=== PATIENT | male | born 1955 | race Caucasian/White ===

== ENCOUNTER 2016-09-11 09:03 | Emergency (ER) | payer OTHER ==
[~2016-09-11] VITALS: Ht 190.5 cm; Wt 120.0 kg
[2016-09-11 09:14] VITALS: BP 162/90; PULSE 82; RESP 26; O2SAT 99
--- NOTE | 2016-09-11 09:20 | ED.REPORT ---
HPI-Abd Pain M 40 and Over Date of Service Sep 11, 2016 ED Provider: Quan Rubio DO The patient is a 61 year old male with history diabetes mellitus type II who presents to ED with severe lower left abdominal pain which began suddenly on his way to work this morning. He experienced lower abdominal cramping and had a bowel movement with no improvement of his left-sided pain. His pain has become progressively worse. He has also experienced nausea. The patient cannot find a comfortable resting position. Patient denies fever, chills, dysuria, vomiting, or chest pain. He has not had similar symptoms in the past. Nursing Notes Stated Complaint: SEVERE ABD/SIDE PAIN Chief Complaint: Male Abdominal Pain Nursing Notes Reviewed: Yes Allergies: Coded Allergies: No Known Allergies (Unverified , 09/11/16) Scheduled PRN Naproxen (Naproxen) 500 Mg Tab 500 MG PO BID PRN PRN For Pain Oxycodone (Roxicodone) 5 Mg Tablet 2.5-5 MG PO Q4H PRN PRN For Pain General Time Seen by MD: 09:19 Chief Complaint Abdominal pain Hx Obtained From: Patient Arrived By: Walk-in Sudden in Onset?: Yes Onset Occurred: 1 - 4 hours ago Symptom Duration: Since onset Progression since Onset: Gradually worsening Location: : Abdomen lower: Flank left: LLQ Quality: Painful Severity: Current: Severe Severity: Maximum: Severe Associated with: Reports: Back pain, Nausea, Denies: Chest pain, Diarrhea, Fever, Vomiting Pertinent Negative: Pt denies other symptoms Recent Healthcare: No recent doctor visit, No recent hospitalization Similar Sx Previous: No Past Medical History Past Medical History Diabetes mellitus Denies: Hypertension Family History Noncontributory Smoking History Unknown if Ever Smoker Social History Other Social History: Good social support Ambulatory Status Independent Review of Systems Review of Systems Note: Patient is type II diabetic and has hypertension. Basic Review of Systems ENT: No pharyngeal pain Constitutional: Denies: Chills, Fever Cardiovascular: Denies: Chest pain GI: Reports: Abdominal pain, Nausea, Denies: Diarrhea, Vomiting Male: Reports Flank pain, Denies Dysuria Musculoskeletal: Reports: Back pain Complete sys rev & neg: except as marked. Physical Exam Initial Vital Signs Vital Signs (First) Date Time Temp Pulse Resp B/P Pulse Ox O2 Delivery O2 Flow Rate FiO2 09/11/16 09:14 35.8 82 26 162/90 99 09/11/16 12:46 Room Air Initial VS: Vital signs abnormal (hypertensive and tachypneic ) Head / Eyes: Atraumatic, Normocephalic, PERRL ENT: Mucous membranes moist, Conjunctiva normal, No scleral icterus Neck: Supple, Non-tender, Full range of motion Extremities: Vascular intact, Neuro intact, No swelling, No tenderness Neurologic: Alert, Oriented, Nonfocal Psychiatric: Mood/affect normal, Behavior normal, Normal thought content General/Constitutional: Awake, Alert Distress / Hydration: Positive: Distress moderate Behavior: Positive: Restless Appearance / Presentation: Positive: Uncomfortable Respiratory / Chest: Atraumatic, Breath sounds NL Cardiovascular: Heart rate NL, Regular rhythm, Heart sounds NL Periph CV / BP Differential: Positive: Peripheral pulses 2+ ( 2+ post tibial pulses) Abdomen: Soft, Non-tender, No guarding, No rebound, BS normoactive, No distention, No hernia, No palpable mass, No pulsatile mass Back: Non-tender, No midline vertebral tend, No CVA tenderness Skin: Atraumatic, No rash, Warm, Dry Interpretation & Diagnostics Lab Results Interpretation Result Diagram: 09/11/16 0945 09/11/16 1015 Test 09/11/16 09:45 09/11/16 10:15 09/11/16 13:00 White Blood Count 13.5th/mm3 (3.8-10.1) Red Blood Count 5.14mil/mm3 (4.40-5.80) Hemoglobin 16.0g/dL (13.8-17.2) Hematocrit 45.3% (41.0-50.0) Mean Corpuscular Volume 88.1fL (81-100) Mean Corpuscular Hemoglobin 31.1pg (27.0-35.0) Mean Corpuscular Hemoglobin Concent 35.3% (32.0-37.0) Red Cell Distribution Width 13.8% (12.3-15.4) Platelet Count 77bil/L (150-400) Neutrophils (%) (Auto) 87.6% (40-74) Lymphocytes (%) (Auto) 7.5% (14-46) Monocytes (%) (Auto) 3.6% (4-12) Eosinophils (%) (Auto) 1.0% (0-5) Basophils (%) (Auto) 0.1% (0-3) Prothrombin Time 10.6sec (8.1-12.5) Prothromb Time International Ratio 0.99ratio Sodium Level 139mEq/L (134-144) Potassium Level 4.5mEq/L (3.5-5.2) Chloride Level 103mEq/L (97-108) Carbon Dioxide Level 19mmol/L (18-29) Blood Urea Nitrogen 25mg/dL (8-27) Creatinine 1.06mg/dL (0.76-1.27) Estimat Glomerular Filtration Rate 76mL/min (>59) Glucose Level 222mg/dL (60-99) Lactic Acid Level 3.5mmol/L (0.4-2.0) Calcium Level 9.0mg/dL (8.5-10.1) Magnesium Level 1.2mg/dL (1.6-2.6) Total Bilirubin 0.7mg/dL (0.0-1.2) Aspartate Amino Transf (AST/SGOT) 42U/L (0-50) Alanine Aminotransferase (ALT/SGPT) 55U/L (0-44) Alkaline Phosphatase 57U/L (25-160) Total Protein 6.7g/dL (6.4-8.4) Albumin 4.4g/dL (3.4-5.0) Lipase 24U/L (13-60) Urine Color Dark yellow (YELLOW) Urine Appearance Slightly cloudy Urine pH 5.5 (5.0-8.0) Urine Specific [place] 1.025 (1.003-1.035) Urine Protein 30mg/dL (NEG,TRACE) Urine Glucose (UA) Negativemg/dL (NEGATIVE) Urine Ketones 15mg/dL (NEGATIVE) Urine Occult Blood Large (NEGATIVE) Urine Nitrite Negative (NEGATIVE) Urine Bilirubin Negative (NEGATIVE) Urine Urobilinogen Normalmg/dL (NORMAL) Urine Leukocyte Esterase Negative (NEGATIVE) Urine RBC Packed/hpf (0-2) Urine WBC 0-5/hpf (0-5) Urine Epithelial Cells Occasional/hpf (NONE-MOD) Urine Crystals Oxalic acid crystals (NONE Urine Bacteria Few/hpf (NONE-FEW) Urine Hyaline Casts None/lpf (NONE) Urine Granular Casts None seen (NONE SEEN) Urine Waxy Casts None seen (NONE SEEN) Urine Red Blood Cell Casts None seen (NONE SEEN) Urine White Blood Cell Casts None seen (NONE SEEN) Urine Mucus Present (None Seen) Urine Trichomonas None seen (NONE SEEN) Urine Yeast Few (NONE SEEN) Urinalysis Comment None Urine Culture Reflexed Not indicated ECG Interpretation ECG Interpretation: Sinus rhythm RBBB Time: 10:15 Interpreted by: ED physician CT Abd / Pelvis Interpretation IMPRESSION: 1. No aortic aneurysm or dissection. No significant atherosclerotic ossifications. 2. A 2 mm stone within the bladder lumen, compatible with a recently passed stone. There is mild left perinephric stranding and periureteral stranding. No hydronephrosis. 3. Mild sigmoid diverticulosis. No active diverticulitis. Dictated by: Darren Sanchez M.D. on 09/11/2016 at 12:23 Re-Eval/Medical Decision Med Decision/Clinical Course Patient presents in severe status with left-sided abdominal pain without focal reproducibility, initial differential diagnosis was broad but did include both kidney stone and aortic dissection given his advanced age, hypertension on arrival, and exam findings. Ultimately there is no dissection however he does have a small stone. Pain is completely resolved. No signs of infection. Patient will be discharged. Return and follow-up precautions given Source of Hx: Old records, Family Time of Eval: 12:51 Re-Evaluation/Progress Note: Rechecked the patient. Discussed CT results, diagnosis, and plan for discharge. All questions were addressed. Counseled Regarding: Diagnosis, Lab results, Need for follow-up, When/why to return to ED Discharge & Departure Primary Impression: Kidney stone Disposition: Home Vital Signs - All Vital Signs Date Time Temp Pulse Resp B/P Pulse Ox O2 Delivery O2 Flow Rate FiO2 09/11/16 12:46 79 16 120/69 97 Room Air 09/11/16 09:14 35.8 82 26 162/90 99 )( All Prior VS Reviewed: Yes Condition: Stable Patient Instructions: Renal Colic (ED) Additional Instructions: Thank you for entrusting us with your care today. I am glad you are feeling better. Your CT scan shows evidence of a recently passed kidney stone in your bladder. Your pain should improve from here! Strain your urine in order to catch any possible stone. Use Oxycodone and Naproxen for pain. Followup with your regular doctor next week for recheck. You may want to consider seeing a urologist. Make sure to drink plenty of fluids. Return to the emergency department for any new or concerning symptoms. Referrals: Bartolo Reina MD (Family) Scribe Attestation Portions of this note were transcribed by Maria Hernadez and Donald Woods. I, Dr. Martina De Guzman personally performed the history, physical exam and medical decision- making; I reviewed and confirmed the accuracy of the information in the transcribed note. Signed by: Maria Hernadez and Juan Person, 09/11/2016 and 1330. copies to: Bartolo Reina MD, Timothy S DO Sep 11, 2016 09:20 Donald Woods Sep 11, 2016 09:45 Maria Hernadez Sep 11, 2016 10:06
[2016-09-11] MEDS ORDERED: Ondansetron 2 mg/mL 2 mL Inj IVPUSH PRN (09:25)
[2016-09-11] MEDS ORDERED: 0.9% Sodium Chloride 1,000 ML IV ONE (09:25)
[2016-09-11] MEDS: HYDROmorphone 1 mg/mL Inj IVPUSH PRN ×2 (09:51→09:57)
[2016-09-11 09:54] LABS: BASOPHILS % (AUTO) 0.1 % (0-3); MONOCYTES % (AUTO) 3.6 % (4-12); Mean Corpuscular Hemoglobin 31.1 pg (27.0-35.0); Mean Corpuscular Volume 88.1 fL (81-100); NEUTROPHILS % (AUTO) 87.6 % (40-74); Platelet Count 77 bil/L (150-400)
[2016-09-11 10:37] LABS: INR 0.99 ratio
[2016-09-11 11:01] LABS: Magnesium 1.2 mg/dL (1.6-2.6)
[2016-09-11] MEDS ORDERED: Magnesium Sulf 4 Gm/100 mL H2O 4 GM in IV Premix 1 EACH IV ONE (11:05)
--- NOTE | 2016-09-11 12:35 | DRSVH ---
PROCEDURE: CT ANG CHEST/ABD/PEL W/WO CIBTRAST (PNL-7502) INDICATIONS: 61-year-old man with sudden onset left flank pain. The patient is hypertensive. TECHNIQUE: Precontrast 5 mm thick sections acquired from the lung apices to the iliac crests. After the adminis tration of intravenous contrast, 3 mm thick sections again acquired from the lung apices to the iliac crests. 3-dimensional maximum intensity projection (MIP) oblique sagittal and coronal reformats wer e then acquired, and/or 3-dimensional volume rendering reformats. For radiation dose reduction, the following was used: automated exposure control. COMPARISON: None. FINDINGS: Image quality: Excellent. AORTA: The aorta is normal in caliber and enhancement. No aortic dissection. No significant atheros clerotic calcification. CHEST: Lungs and pleura: No acute airspace opacities. No pleural effusions or pneumothorax. Central and p eripheral airways are patent and normal in caliber. Mediastinum: Heart size is normal. No pericardial effusion. No mediastinal or hilar adenopathy by size criteria. Central pulmonary arteries are normal in size. Esophagus is normal in caliber. No h iatal hernias. Bones and chest wall: No axillary adenopathy by size criteria. Thyroid gland is normal. No suspici ous bony lesions. No vertebral body compression fractures. ABDOMEN: Vasculature: Celiac trunk and mesenteric arteries are normal in caliber and patent. Renal arteries are normal in caliber and patent. Solid organs: Both kidneys are normal in size and enhancement, without hydronephrosis. There is mild left lupe-nephric and lupe-ureteral stranding. A 2 mm stone is noted in the dependent urinary bladde r room and at midline, consistent with recent passed stone. Liver and spleen are normal in size. Gallbladder is normal. Biliary system is non dilated. Pancrea s enhances normally. No adrenal nodules. Peritoneum and bowel: No free fluid or air. Normal appendix. Bowel loops are normal in caliber and wall thickness. Note is made of sigmoid diverticulosis. No active diverticulitis. Nodes and vessels: No retroperitoneal or mesenteric adenopathy by size criteria. Inferior vena cava is normal in morphology. Bones: No suspicious bony lesions. No vertebral body compression fractures. Miscellaneous: No ventral hernias. IMPRESSION: 1. No aortic aneurysm or dissection. No significant atherosclerotic ossifications. 2. A 2 mm stone within the bladder lumen, compatible with a recently passed stone. There is mild left perinephric stranding and periureteral stranding. No hydronephrosis. 3. Mild sigmoid diverticulosis. No active diverticulitis. Dictated by: Darren Sanchez M.D. on 09/11/2016 at 12:23 Approved by: Darren Sanchez M.D. on 09/11/2016 at 12:33
[2016-09-11 12:46] VITALS: BP 120/69; PULSE 79; RESP 16; O2SAT 97
[2016-09-11 13:11] LABS: APPEARANCE,URINE SLIGHTLY CLOUDY (CLEAR,HAZY); COLOR,URINE DARK YELLOW (YELLOW); OCCULT BLOOD,URINE LARGE (NEGATIVE); PH,URINE 5.5 (5.0-8.0)
[2016-09-11 13:13] LABS: UROBILINOGEN,URINE NORMAL (NORMAL)
[2016-09-11] MEDS ORDERED: OXYC-474 PO (13:15)
[2016-09-11] MEDS ORDERED: NPR500T PO (13:15)
[2016-09-11 13:22] LABS: YEAST,URINE FEW (NONE SEEN)
[2016-09-11 13:47] VITALS: BP 124/69; PULSE 76; RESP 16; O2SAT 98
== END 2016-09-11 13:48 | disposition home or self-care (01) ==
LOC: SED 09:03
DX: N20.0 Calculus of kidney (principal); E11.9 Type 2 diabetes mellitus without complications
CPT/HCPCS: 36415; 71275; 74174; 80053; 81000; 83605; 83690; 83735; 85025; 85610; 93005; 96374; 96375; 99285; J1170; J2405; J3475; J7030; Q9967